=== PATIENT | female | born 1980 | race Caucasian/White ===

== ENCOUNTER 2021-04-18 06:30 | Emergency (ER) | payer SELFPAY ==
[2021-04-18] MEDS ORDERED: Magnesium 2 GM/50 ML BAG (IN WATER) ONE (06:35)
[2021-04-18] MEDS ORDERED: EPINEPHrine 1 MG/10 ML Abboject SYRINGE ONE (14:10)
[2021-04-18] MEDS ORDERED: Calcium Chloride 1 GM/10 ML Abboject SYRINGE ONE (14:10)
[2021-04-18] MEDS ORDERED: Sodium Bicarb 50 MEQ/50 ML Abboject 8.4% SYRINGE ONE (14:10)
== END 2021-04-18 06:47 | disposition expired ==
LOC: CSHERS 06:30
DX: I46.9 Cardiac arrest, cause unspecified (principal); R04.89 Hemorrhage from other sites in respiratory passages
CPT/HCPCS: 31500; 36416; 94760; 96374; 96375; J0171; J3475